=== PATIENT | female | born 1985 | race Caucasian/White ===

== ENCOUNTER 2017-07-09 14:01 | Emergency (ER) | payer BC ==
[~2017-07-09] VITALS: Ht 170.2 cm; Wt 96.8 kg
[~2017-07-09 14:01] MED LIST: CIPR500T4 PO; LORTA5 PO
[2017-07-09 14:03] VITALS: BP 138/80; PULSE 95; RESP 18; TEMP 98.3; O2SAT 99
[2017-07-09 15:51] LABS: BASOPHIL % 0.3 % (0.0-2.0); EOSINOPHIL % 0.2 % (0.0-4.0); HEMATOCRIT 41.3 % (35.0-46.0); HEMOGLOBIN 13.9 GM/DL (11.6-15.3); LYMPH % 13.5 % (9.0-44.0); LYMPHOCYTE # 2.1 TH/MM3 (1.0-4.8); MEAN CELL VOLUME 78.6 FL (80.0-100.0); MEAN CORPUSCULAR HEMOGLOBIN 26.5 PG (27.0-34.0); MEAN CORPUSCULAR HGB CONC 33.7 % (32.0-36.0); MEAN PLATELET VOLUME 9.8 FL (7.0-11.0); MONO % 3.5 % (0.0-8.0); MONOCYTE # 0.5 TH/MM3 (0-0.9); NEUT % 82.5 % (16.0-70.0); PLATELET COUNT 248 TH/MM3 (150-450); RED BLOOD COUNT 5.26 MIL/MM3 (4.00-5.30); RED CELL DISTRIBUTION WIDTH 14.3 % (11.6-17.2); WHITE BLOOD COUNT 15.8 TH/MM3 (4.0-11.0)
[2017-07-09 15:55] LABS: BICARBONATE 26.8 MEQ/L (21.0-32.0); CALCIUM 9.3 MG/DL (8.5-10.1); CREATININE 0.74 MG/DL (0.50-1.00)
--- NOTE | 2017-07-09 16:39 | RADRPT ---
EXAM DATE/TIME: 07/09/2017 15:21 [place] COMPARISON: No previous studies available for comparison. INDICATIONS : Cough. MEDICAL HISTORY : pneumonia SURGICAL HISTORY : None. ENCOUNTER: Initial ACUITY: 4 - 6 days PAIN SCORE: 0/10 LOCATION: Bilateral chest FINDINGS: PA and lateral views of the chest demonstrate the lungs to be symmetrically aerated without evidence of mass, infiltrate or effusion. The cardiomediastinal contours are unremarkable. Osseous structure s are intact. CONCLUSION: No acute disease. Steven House MD on July 09, 2017 at 16:36 Board Certified Radiologist. This report was verified electronically.
[2017-07-09] MEDS ORDERED: LEVO500T8 PO (16:42)
--- NOTE | 2017-07-09 17:03 | PD ---
HPI Chief Complaint: Respiratory Symptoms Time Seen by Provider: 17:03 Travel History International Travel<30 days: No Contact w/Intl Traveler<30days: No Traveled to known affect area: No History of Present Illness HPI 31-year-old female came to the emergency room with history of cough and some shortness of breath since Thursday. Patient said that over the weekend she had fever and cough and Thursday she went to see her primary care. There was an x- ray done and she was told that she had pneumonia and she was started on steroid initially. After a day or 2 her primary care started her on Levaquin. Patient says that since she started taking the Levaquin she felt like her cough was getting worse and the shortness of breath as well. She called her primary care who asked her to come to the emergency room to be evaluated. Vital signs were stable in triage. When I went to see the patient she was sitting on the stretcher and was on her cell phone and looked very comfortable. She is not a smoker and otherwise a healthy person. No history of asthma or COPD. [facility] Past Medical History Narrative Medical List of her past medical, surgical, social and family history is reviewed from the nursing note. Medical History: Denies Significant Hx Cancer: No Cardiovascular Problems: No Diminished Hearing: No Endocrine: No Gastrointestinal Disorders: Yes (THIS ADMISSION) Genitourinary: No Immune Disorder: No Implanted Vascular Access Dvce: No Musculoskeletal: No Neurologic: No Psychiatric: No Reproductive: No Respiratory: No ?: Not LMP: 06/05/17 : 1 Para: 1 Past Surgical History Abdominal Surgery: Yes (C SECTION 2014) Section: Yes Cholecystectomy: Yes Social History Alcohol Use: Yes (Occasionally) Tobacco Use: No Substance Use: No Allergies-Medications (Allergen,Severity, Reaction): Coded Allergies: azithromycin (Unverified Allergy, Severe, 01/13/17) ceftriaxone (Unverified Allergy, Severe, hives, eyelid swelling, 01/13/17) Comments List of her allergies reviewed from the nursing note. Reported Meds & Prescriptions Reported Meds & Active Scripts Active Ventolin Hfa 18 GM Inh (Albuterol Sulfate) 90 Mcg/Act Aer 2 Puff INH Q4-6H PRN Reported Levofloxacin 500 Mg Tablet 500 Mg PO DAILY Narrative Medication List of her home medications reviewed from the nursing note. Review of Systems Except as stated in HPI: all other systems reviewed are Neg Respiratory: Positive: Cough, Shortness of Breath Physical Exam Narrative GENERAL: Alert, awake, no obvious distress SKIN: Focused skin assessment warm/dry. HEAD: Atraumatic. Normocephalic. EYES: Pupils equal and round. No scleral icterus. No injection or drainage. ENT: No nasal bleeding or discharge. Mucous membranes pink and moist. NECK: Trachea midline. No JVD. CARDIOVASCULAR: Regular rate and rhythm. No murmur appreciated. RESPIRATORY: No accessory muscle use. Clear to auscultation. Breath sounds equal bilaterally. GASTROINTESTINAL: Abdomen soft, non-tender, nondistended. Hepatic and splenic margins not palpable. MUSCULOSKELETAL: No obvious deformities. No clubbing. No cyanosis. No edema. NEUROLOGICAL: Awake and alert. No obvious cranial nerve deficits. Motor grossly within normal limits. Normal speech. PSYCHIATRIC: Appropriate mood and affect; insight and judgment normal. Data Data Last Documented VS Vital Signs Date Time Temp Pulse Resp B/P (MAP) Pulse Ox O2 Delivery O2 Flow Rate FiO2 07/09/17 17:28 07/09/17 16:42 18 100 Room Air 07/09/17 14:03 98.3 95 Orders Orders Complete Blood Count With Diff (07/09/17 14:38) Basic Metabolic Panel (Bmp) (07/09/17 14:38) Chest, Pa & Lat (07/09/17 ) Ed Discharge Order (07/09/17 17:15) Labs Laboratory Tests Test 07/09/17 15:15 White Blood Count 15.8 TH/MM3 Red Blood Count 5.26 MIL/MM3 Hemoglobin 13.9 GM/DL Hematocrit 41.3 % Mean Corpuscular Volume 78.6 FL Mean Corpuscular Hemoglobin 26.5 PG Mean Corpuscular Hemoglobin Concent 33.7 % Red Cell Distribution Width 14.3 % Platelet Count 248 TH/MM3 Mean Platelet Volume 9.8 FL Neutrophils (%) (Auto) 82.5 % Lymphocytes (%) (Auto) 13.5 % Monocytes (%) (Auto) 3.5 % Eosinophils (%) (Auto) 0.2 % Basophils (%) (Auto) 0.3 % Neutrophils # (Auto) 13.0 TH/MM3 Lymphocytes # (Auto) 2.1 TH/MM3 Monocytes # (Auto) 0.5 TH/MM3 Eosinophils # (Auto) 0.0 TH/MM3 Basophils # (Auto) 0.0 TH/MM3 CBC Comment DIFF FINAL Differential Comment Blood Urea Nitrogen 11 MG/DL Creatinine 0.74 MG/DL Random Glucose 94 MG/DL Calcium Level 9.3 MG/DL Sodium Level 139 MEQ/L Potassium Level 3.8 MEQ/L Chloride Level 105 MEQ/L Carbon Dioxide Level 26.8 MEQ/L Anion Gap 7 MEQ/L Estimat Glomerular Filtration Rate 92 ML/MIN MDM Medical Decision Making Medical Screen Exam Complete: Yes Emergency Medical Condition: Yes Medical Record Reviewed: Yes Differential Diagnosis Bronchitis Narrative Course 5:24 PM blood test results and chest x-ray are back. Patient has some leukocytosis which could be explained by the steroid course that she has taken over the past 5 days. I recommended to finish the course of Levaquin since she apparently did have a chest x-ray on Thursday which showed pneumonia as per her primary care. I will give her a prescription for albuterol and she'll be discharged. Procedures EKG Prior to Arrival: No Diagnosis Primary Impression: Reactive airway disease Qualified Codes: J45.20 - Mild intermittent asthma, uncomplicated Referrals: Primary Care Physician Additional Instructions: Please return to the ER if condition worsens or any other new concerns. Otherwise follow-up with your primary care. Take the medication as per the prescription direction. Finished a course of Levaquin. Med/Other Pt SpecificInfo: Prescription(s) given Scripts Albuterol 18 GM Inh (Ventolin Hfa 18 GM Inh) 90 Mcg/Act Aer 2 PUFF INH Q4-6H Y for SHORTNESS OF BREATH, #1 INHALER 0 Refills Prov: Baldemar Wilson MD 07/09/17 Disposition: 01 DISCHARGE HOME Condition: Stable Baldemar Wilson MD Jul 09, 2017 17:03
[2017-07-09] MEDS ORDERED: VENTAER INH (17:26)
== END 2017-07-09 17:40 | disposition home or self-care (01) ==
LOC: NEPD 14:01
DX: J45.20 Mild intermittent asthma, uncomplicated (principal)
CPT/HCPCS: 71046; 80048; 85025; 99284